=== PATIENT | male | born 1960 | race Caucasian/White ===

== ENCOUNTER 2019-01-10 16:00 | Emergency (ER) | payer OTHER ==
[~2019-01-10] VITALS: Ht 167.6 cm; Wt 67.6 kg
--- NOTE | 2019-01-10 16:42 | PHYS DOC ---
Past History Past Medical History: No Pertinent History Past Surgical History: No Surgical History Alcohol Use: None Drug Use: None Adult General Chief Complaint Chief Complaint: BACK PAIN OR INJURY [facility] HPI 58-year-old male presents with left-sided upper lumbar pain. The patient irritated his back weeks ago shoveling snow and has had intermittent pain and spasms since. Yesterday the patient had some pain before bed but put topical cream on it and felt better this morning. He was walking earlier today and rotated his body and had a sudden feeling of sharp pain in the left lower back area around L1-L2. He then had muscle spasms and has continued to have pain since. Patient did not have any trauma. He was not carrying anything or doing anything strenuous. He has no significant history of back problems no back surgeries. He denies any other injuries or complaints. Review of Systems Review of Systems Constitutional: Denies fever or chills [] Eyes: Denies change in visual acuity, redness, or eye pain [] HENT: Denies nasal congestion or sore throat [] Respiratory: Denies cough or shortness of breath [] Cardiovascular: No additional information not addressed in HPI [] GI: Denies abdominal pain, nausea, vomiting, bloody stools or diarrhea [] : Denies dysuria or hematuria [] Musculoskeletal: Low back pain[] Integument: Denies rash or skin lesions [] Neurologic: Denies headache, focal weakness or sensory changes [] Endocrine: Denies polyuria or polydipsia [] All other systems were reviewed and found to be within normal limits, except as documented in this note. Allergies Allergies Allergies Coded Allergies Type Severity Reaction Last Updated Verified No Known Drug Allergies 01/10/19 No Physical Exam Physical Exam Constitutional: Well developed, well nourished, no acute distress, non-toxic appearance. [] HENT: Normocephalic, atraumatic, bilateral external ears normal, oropharynx moist, no oral exudates, nose normal. [] Eyes: PERRLA, EOMI, conjunctiva normal, no discharge. [] Neck: Normal range of motion, no tenderness, supple, no stridor. [] Cardiovascular:Heart rate regular rhythm, no murmur [] Lungs & Thorax: Bilateral breath sounds clear to auscultation [] Abdomen: Bowel sounds normal, soft, no tenderness, no masses, no pulsatile masses. [] Skin: Warm, dry, no erythema, no rash. [] Back: Left-sided paraspinal muscle tenderness L1-L2. Patient is hesitant to stand up straight.[] Extremities: No tenderness, no cyanosis, no clubbing, ROM intact, no edema. [] Neurologic: Alert and oriented X 3, normal motor function, normal sensory function, no focal deficits noted. [] Psychologic: Affect normal, judgement normal, mood normal. [] Current Patient Data Vital Signs Vital Signs Date Time Temp Pulse Resp B/P (MAP) Pulse Ox O2 Delivery O2 Flow Rate FiO2 01/10/19 16:02 97.5 77 16 97 Room Air EKG EKG [] Radiology/Procedures Radiology/Procedures [] Impressions: Preliminary finding lumbar spine: no acute fractures or spondylolisthesis, degenerative change. Course & Med Decision Making Course & Med Decision Making Pertinent Labs and Imaging studies reviewed. (See chart for details) Patient's lumbar x-rays are negative for acute findings. The patient likely has a muscle strain. I will advise that he take ibuprofen and rest. I will additionally discharge him with Flexeril. [] Dragon Disclaimer Dragon Disclaimer This electronic medical record was generated, in whole or in part, using a voice recognition dictation system. Departure Departure: Impression: Primary Impression: Lumbar strain Disposition: 01 HOME, SELF-CARE Condition: STABLE Referrals: PCP,NO (PCP) Patient Instructions: Low Back Strain with Rehab-[facility] Scripts Cyclobenzaprine Hcl (CYCLOBENZAPRINE HCL) 10 Mg Tablet 1 TAB PO TID PRN for MUSCLE SPASMS, #30 TAB Prov: CITLALI MURO DO 01/10/19 Problem Qualifiers Primary Impression: Lumbar strain Encounter type: initial encounter Qualified Codes: S39.012A - Strain of muscle, fascia and tendon of lower back, initial encounter CITLALI MURO DO Jan 10, 2019 16:42
[2019-01-10] MEDS ORDERED: CYCL-331 PO (17:29)
--- NOTE | 2019-01-10 17:30 | RAD ---
EXAM: Lumbar spine, 3 views. HISTORY: Spasm. COMPARISON: None. FINDINGS: 3 views of the lumbar spine are obtained. There is mild lumbar levocurvature. There is no significant listhesis. The vertebral bodies are normal in height. There is endplate remodeling predominantly anteriorly at L2-L3. IMPRESSION: 1. 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 2. No acute osseous finding. Electronically signed by: Mirian Goins MD (01/10/2019 5:25 PM) [id number]
[2019-01-10 17:56] VITALS: BP 122/81
== END 2019-01-10 17:40 | disposition home or self-care (01) ==
LOC: ER 16:00
DX: S39.012A Strain of muscle, fascia and tendon of lower back, initial encounter (principal); X50.9XXA Other and unspecified overexertion or strenuous movements or postures, initial encounter; Y93.01 Activity, walking, marching and hiking; Y92.89 Other specified places as the place of occurrence of the external cause; Y99.8 Other external cause status
CPT/HCPCS: 72100; 99283